=== PATIENT | male | born 1935 | race Caucasian/White ===

== ENCOUNTER → 2016-09-14 | Day surgery (SDC) | payer OTHER, MEDICARE ==
[~2016-09-14] VITALS: Ht 177.8 cm; Wt 99.8 kg
[~2016-09-14] MED LIST: DIAZEPAM5 M1 PO; FENOFIBRATE145 M1 PO; FLOMAX0.4 M1 PO; LEVOCETIRIZINE D5 M1 PO; RANITIDINE HCL150 M2 PO; WELLBUTRIN SR150 M1 PO; ZETIA10 M1 PO
--- NOTE | 2016-09-14 11:59 | Operative Report ---
Operative/Inv Procedure Report Surgery Date: 09/14/16 Name of Procedure: Cataract extraction lens implantation correction of astigmatism right eye Pre-Operative Diagnosis: Age-related cataract and astigmatism right eye 20/30 vision 20/60 glare vision Post-Operative Diagnosis: Same Estimated Blood Loss: none Surgeon/Facility Specialist: RHODA SWEENEY MD Anesthesia: local monitored anesthesi Complications: None Operative/Procedure Note Note: Patient was brought to the operating room and standard monitoring equipment was attached. The patient was prepped and draped in the usual fashion for sterile intraocular surgery. The eye had been marked at 12 and 3 o'clock in the holding area and then the eye was marked on the table to indicate 1 on the cornea. The eye was stabilized with a Lomeli ring and the anterior chamber was entered using a 2.4 mm keratome temporally. A small amount of non-preserved lidocaine was introduced into the anterior chamber to provide anesthesia. The anterior chamber was then deepened with viscoelastic. A temporal paracentesis entrance into the eye was made with a 1 mm MVR blade. A curvilinear capsulorrhexis was started with a 30-gauge needle bent as a cystotome and finished with a Utrata forceps. The lens was hydrodissected using balanced salt solution through a 26- gauge cannula. The lens was found to be rotatable and was then emulsified using a four-quadrant divide and conquer technique. Residual cortical material was removed using automated irrigation and aspiration. The posterior capsule was polished first with the machine on portuguese setting and then with a Graham squeegee. The capsular bag was re-deepened with viscoelastic. The lens an ZCT 300 22.0 D toric lens was placed into the capsular bag under direct visualization and rotated so that the markings on the lens corresponded with the previously marked cornea. The residual viscoelastic was removed using automated irrigation and aspiration. Anterior chamber was reinflated with balanced salt solution. The main wound was sealed shut using balanced salt solution. 1/10 of a cc of vancomycin solution was placed into the eye through the paracentesis site. The eye was checked and found to be in adequate tone in the paracentesis site was sealed. The lid speculum was removed from the eye. The draping and monitoring equipment was removed from the patient who was then removed from the operating room in stable condition and brought to same-day surgery. Patient tolerated the procedure well and will be seen in the office tomorrow.
== END ==
LOC: STS 05:06
DX: H25.9 Unspecified age-related cataract (principal); H52.201 Unspecified astigmatism, right eye; N32.9 Bladder disorder, unspecified; N40.0 Benign prostatic hyperplasia without lower urinary tract symptoms
CPT/HCPCS: J2250; V2632; V2787-GY

== ENCOUNTER → 2016-10-05 | Day surgery (SDC) | payer OTHER, MEDICARE ==
[~2016-10-05] VITALS: Ht 177.8 cm; Wt 99.8 kg
--- NOTE | 2016-10-05 10:59 | Operative Report ---
Operative/Inv Procedure Report Surgery Date: 10/05/16 Name of Procedure: Cataract extraction lens implantation correction of astigmatism left eye Pre-Operative Diagnosis: Age-related cataract and astigmatism left eye 20/25 vision 20/50 glare vision Post-Operative Diagnosis: Same Estimated Blood Loss: none Surgeon/Solid Waste Analyst: RHODA SWEENEY MD Anesthesia: local monitored anesthesi Complications: None Operative/Procedure Note Note: Patient was brought to the operating room and standard monitoring equipment was attached. The patient was prepped and draped in the usual fashion for sterile intraocular surgery. The eye had been marked at 12 and 3 o'clock in the holding area and then the eye was marked on the table to indicate 5 on the cornea. The eye was stabilized with a Lomeli ring and the anterior chamber was entered using a 2.4 mm keratome temporally. A small amount of non-preserved lidocaine was introduced into the anterior chamber to provide anesthesia. The anterior chamber was then deepened with viscoelastic. A temporal paracentesis entrance into the eye was made with a 1 mm MVR blade. A curvilinear capsulorrhexis was started with a 30-gauge needle bent as a cystotome and finished with a Utrata forceps. The lens was hydrodissected using balanced salt solution through a 26- gauge cannula. The lens was found to be rotatable and was then emulsified using a four-quadrant divide and conquer technique. Residual cortical material was removed using automated irrigation and aspiration. The posterior capsule was polished first with the machine on british setting and then with a Graham squeegee. The capsular bag was re-deepened with viscoelastic. The lens an ZCT 300 22.0 D toric lens was placed into the capsular bag under direct visualization and rotated so that the markings on the lens corresponded with the previously marked cornea. The residual viscoelastic was removed using automated irrigation and aspiration. Anterior chamber was reinflated with balanced salt solution. The main wound was sealed shut using balanced salt solution. 1/10 of a cc of vancomycin solution was placed into the eye through the paracentesis site. The eye was checked and found to be in adequate tone in the paracentesis site was sealed. The lid speculum was removed from the eye. The draping and monitoring equipment was removed from the patient who was then removed from the operating room in stable condition and brought to same-day surgery. Patient tolerated the procedure well and will be seen in the office tomorrow.
== END ==
LOC: STS 01:03
DX: H25.9 Unspecified age-related cataract (principal); H52.202 Unspecified astigmatism, left eye; K21.9 Gastro-esophageal reflux disease without esophagitis
CPT/HCPCS: J2250; V2632; V2787-GY